=== PATIENT | female | born 1965 | race Caucasian/White ===

== ENCOUNTER → 2019-10-31 12:05 | Outpatient (BNVA) | payer SELFPAY | PROVIDERS: Family Provider Nurse Practitioner Family; PCP Nurse Practitioner Family; Visit Provider Nurse Practitioner Family | DX: R68.89 Other general symptoms and signs (principal); R82.998 Other abnormal findings in urine; R19.8 Other specified symptoms and signs involving the digestive system and abdomen; E86.0 Dehydration | CPT/HCPCS: 81003; 87804 ==